=== PATIENT | female | born 1960 | race Caucasian/White ===

== ENCOUNTER 2016-12-12 11:58 | Outpatient (CLI) | payer OTHER ==
[2012-05-23 06:26] VITALS: BMI 28.2
== END 2016-12-12 13:55 ==
LOC: D.MAMMO 11:58
DX: Z12.31 Encounter for screening mammogram for malignant neoplasm of breast (principal)

== ENCOUNTER → 2018-01-09 06:34 | Outpatient (CLI) | payer OTHER ==
[2012-05-23 06:26] VITALS: BMI 28.2
== END | disposition home or self-care (01) ==
LOC: D.MRI 06:34
DX: M54.16 Radiculopathy, lumbar region (principal)